=== PATIENT | male | born 1995 | race Hispanic/Latino ===

== ENCOUNTER 2017-05-01 23:32 | Emergency (ER) | payer BC ==
[~2017-05-01] VITALS: Ht 170.2 cm; Wt 88.5 kg
== END 2017-05-02 01:12 | disposition home or self-care (01) ==
LOC: ER 23:32
DX: S83.511A Sprain of anterior cruciate ligament of right knee, initial encounter (principal); Y93.61 Activity, american tackle football; Y92.321 Football field as the place of occurrence of the external cause
CPT/HCPCS: 99283